=== PATIENT | female | born 1950 | race Caucasian/White ===

== ENCOUNTER → 2020-07-19 | Outpatient (CLI) | payer OTHER | LOC: LAB 07-12 10:10 | PROVIDERS: ATTEND Internal Medicine | DX: Z01.812 Encounter for preprocedural laboratory examination (principal); Z20.828 Contact with and (suspected) exposure to other viral communicable diseases ==

== ENCOUNTER → 2020-07-24 | Outpatient (CLI) | payer OTHER ==
--- NOTE | 2020-08-08 19:50 | MCT ---
[facility] [place] [address] METHACHOLINE CHALLENGE TEST Name: MONSERRAT POLLOCK Room #: [facility].#: [id number] Admission: 07/24/20 Attend Phys: Seamus Diaz MD Discharge: Date of : 48 Report #: [id number] THIS REPORT FOR: //name// COPIES FOR: AGE: 70 SEX/RACE: F/C Height: 64 in Exam Date: 07/24/20 Weight: 240 lbs BTPS: X >> PRE BRONCHODILATOR: PREDICTED BEST %PRED FORCED VITAL CAPACITY (FRC) L LPM % FORCED EXP VOL/SEC (FEV1) L FEV/FVC % MAX MID-EXP FLOW (FEF 25-75) L/SEC L/SEC % PEAK EXP FLOW RATE (FEF MAX) L/MIN L/MIN MED-VC RATIO (FEF 50/FEF 50) .09 Baseline: Phenol Saline Level 1: 0.025 mg/ml BEST %PRED %CHANGE BEST %PRED %CHANGE FVC 2.09 L 74 % % FVC 2.11 L 75 % 1 % FEV1 1.27 L 64 % % FEV1 1.34 L 67 % 5 % Level 2: 0.25 mg/ml Level 3: 2.5 mg/ml BEST %PRED %CHANGE BEST %PRED %CHANGE FVC 2.09 L 74 % 0 % FVC 1.98 L 71 % -5 % FEV1 1.32 L 66 % 3 % FEV1 1.17 L 59 % -8 % . Level 4: 10 mg/ml Level 5: 25 mg/ml BEST %PRED %CHANGE BEST %PRED %CHANGE FVC 1.46 L 52 % -30 % FVC L % % FEV1 0.84 L 42 % -34 % FEV1 L % % Post Bronchodilator: 1st Treatment Post Bronchodilator: 2nd Treatment BEST %PRED %CHANGE BEST %PRED %CHANGE FVC 2.11 L 75 % 1 % FVC L % % FEV1 1.35 L 68 % 6 % FEV1 L % % Post Bronchodilator: 3rd Treatment BEST %PRED %CHANGE [facility] [address] [place] [address] METHACHOLINE CHALLENGE TEST Name: MONSERRAT POLLOCK Room #: REG [facility]#: [id number] Admission: 07/24/20 Attend Phys: Seamus Diaz MD Discharge: Date of : 48 Report #: [id number] FVC L % % FEV1 L % % >> INTERPRETATION: CC: FAM unknown Seamus Diaz DATE OF SERVICE: 07/24/2020 METHACHOLINE CHALLENGE TEST Methacholine challenge test was completed in routine fashion. Increasing doses of methacholine challenge was performed. Baseline FEV1 is 1.27 liters (64%). Baseline FVC is 2.09 liters (74%), three doses of incremental methacholine were delivered. With a significant drop in her FEV1 to 0.84 liters (34% change). Bronchodilator therapy was administered. With a positive response to treatment. IMPRESSION: This is a positive methacholine challenge test. Please correlate clinically. <ELECTRONICALLY SIGNED> By: Benson Flowers MD 08/08/20 1950 Benson Flowers MD /nt
== END ==
LOC: PUL 07:46
PROVIDERS: ATTEND Internal Medicine
DX: J44.9 Chronic obstructive pulmonary disease, unspecified (principal)